=== PATIENT | female | born 1960 | race Caucasian/White ===

== ENCOUNTER 2017-12-14 15:45 | Emergency (ER) | payer OTHER ==
[2017-12-14] MEDS ORDERED: MECLIZINE HCL 12.5 MG TAB ONE ×3 (16:37→22:34)
[2017-12-14] MEDS ORDERED: ONDANSETRON 4 MG/2 ML VIAL ONE (16:37)
[2017-12-14] MEDS ORDERED: NA CHLORIDE 0.9% 1,000 ML ONE (16:38)
[2017-12-14 16:42] LABS: Absolute Lymphocytes (CBC) 1.3 K/uL (0.7-4.9); Absolute Monocytes 0.3 K/uL (0.1-1.3); Absolute Neutrophil 4.6 K/uL (1.8-8.0); Basophils % 0.4 % (0-1.3); Eosinophils % 2.1 % (0-4.4); Hematocrit 39.4 % (36.0-45.0); Lymphocytes % 20.4 % (15.3-44.8); MCH 28.6 pg (27.0-35.0); MCV 83.7 fL (80-100); Monocytes % 4.1 % (3.3-12.3)
[2017-12-14 16:50] LABS: Protime INR 1.03
[2017-12-14 16:59] LABS: Bicarbonate 27 mEq/L (21-31); Glucose Level 114 mg/dL (65-120); Potassium 3.7 mEq/L (3.6-5.0); Sodium Level 137 mEq/L (135-145)
--- NOTE | 2017-12-14 16:59 | RAD REPORT ---
EXAM DESCRIPTION: CT - Head C Spine Mpr Wo Con - 12/14/2017 4:48 pm CLINICAL HISTORY: Head and neck injury status post fall. Head and neck pain dizziness for 3 weeks COMPARISON: None. TECHNIQUE: Computed axial tomography of the head and cervical spine was obtained. Sagittal and coronal reconstruction was performed. All CT scans are performed using dose optimization technique as appropriate and may include automated exposure control or mA/KV adjustment according to patient size. FINDINGS: An intracranial bleed is not seen. The ventricles are normal in caliber. An extra-axial fl uid collection is not noted.Fluid within the visualized sinuses and mastoids is not seen A cervical fracture is not visualized. No dislocation is noted. Spondylosis C6-7 results in moderate narrowing of the right neural foramina IMPRESSION: No acute intracranial abnormality is seen. A cervical fracture is not visualized. If the patient continues to have symptoms to suggest intracra nial /spinal cord pathology then MRI would be recommended
--- NOTE | 2017-12-14 17:01 | RAD REPORT ---
EXAM DESCRIPTION: CT - Facial Bones W/ Mpr - 12/14/2017 4:48 pm CLINICAL HISTORY: Facial injury status post fall. Facial pain COMPARISON: none TECHNIQUE: Computed axial tomography of the face was obtained. Coronal and sagittal reconstruction w as performed. All CT scans are performed using dose optimization technique as appropriate and may include automated exposure control or mA/KV adjustment according to patient size. FINDINGS: A fracture is not seen. A TMJ dislocation is not noted. The globes are intact. Fluid within the sinuses is not seen. IMPRESSION: Negative for a facial fracture.
[2017-12-14 17:05] LABS: ALT/SGPT 21 IU/L (10-60); AST/SGOT 23 IU/L (10-42); Albumin 3.8 g/dL (3.2-5.5); Alkaline Phosphatase 54 IU/L (42-121); BUN Blood Urea Nitrogen 12 mg/dL (6-20); Bilirubin Direct < 0.1 mg/dL (0-0.2); Bilirubin Total 0.3 mg/dL (0.3-1.2); Creatine Phosphokinase 271 IU/L (22-269); Glomerular Filtration Rate 64 mL/min (=/>90); Magnesium 1.8 mg/dL (1.8-2.5); Protein, Total 6.7 g/dL (6.0-8.3)
[2017-12-14 17:06] LABS: CKMB Creatine Kinase MB 2.6 ng/ml (0.3-4.0)
--- NOTE | 2017-12-14 17:19 | RAD REPORT ---
EXAM DESCRIPTION: Riri Single View12/14/2017 4:44 pm CLINICAL HISTORY: Chest pain COMPARISON: none FINDINGS: A 3 centimeter lucency is present within the left lung base. The remainder of the lungs a ppear clear of acute infiltrate. The heart is normal size IMPRESSION: 3 centimeter lucency within the left lung base. It is uncertain whether this represents normal aerated lung surrounded by pulmonary vessels, a diaphragmatic hernia or a cavitary lesion. La teral chest x-ray is recommended for further evaluation
[2017-12-14 17:51] LABS: Urine Blood NEGATIVE (NEG); Urine Glucose NEGATIVE (NEG); Urine Protein NEGATIVE (NEG); Urine Specific Gravity 1.025 (1.005-1.030)
--- NOTE | 2017-12-14 19:25 | RAD REPORT ---
EXAM DESCRIPTION: RAD - Chest Pa And Lat (2 Views) - 12/14/2017 5:35 pm CLINICAL HISTORY: Abnormal chest film for followup COMPARISON: Portable chest December 14 TECHNIQUE: PA and lateral views of the chest were obtained. FINDINGS: The lungs are normal volume. There is slight diaphragmatic eventration present. The left d iaphragmatic region finding on earlier chest film was less conspicuous on the current examination. Th ere is no correlate on the lateral view. A mass or cavitation of the lung base is doubtful as a true finding. Heart size is normal and central vasculature is within normal limits. No pleural effusion or pneumothorax seen. Thoracic spine degenerative change present. No acute finding. No aortic abnorm ality. IMPRESSION: No acute cardiopulmonary process. The questionable mass at the left base is believed to be summation of overlapping lung parenchyma and diaphragmatic eventration.
--- NOTE | 2017-12-14 22:25 | RAD REPORT ---
EXAM DESCRIPTION: MRI - Brain Wo Cont - 12/14/2017 9:59 pm CLINICAL HISTORY: Weakness, dizziness, possible CVA COMPARISON: CT head same date TECHNIQUE: Sagittal T1-weighted images were obtained along with axial PD, heavily T2-weighted and T2 -FLAIR images. Axial DWI and ADC mapping sequences were also obtained along with coronal heavily T2-w eighted images. FINDINGS: No intracranial hemorrhage, mass or acute infarction. There is no edema or shift of midlin e structures. Multiple small areas of hyperintense T2/IR signal noted in the cerebral white matter. L ow-level increased signal is present in the anterior left side derrick. Although the patient is relative ly young, chronic ischemic change is the most likely etiology. Vasculitis, demyelinization and migrai ne headache etiologies would need matching clinical findings. Charles-matter/white matter junction is preserved. Signal voids are seen as a normal finding in the aly or intracranial vessels. No globe or orbital content abnormality. No sella or supra sella abnormality . No tonsillar ectopia. Mastoid air cells and paranasal sinuses are clear. IMPRESSION: No acute infarction changes. No hemorrhage, mass or acute intracranial finding. Scattered cerebral white matter and subcortical signal abnormalities are present along with anterior left pontine signal abnormality. Chronic ischemic changes most likely. Vasculitis, migraine headache and demyelinating etiologies are possible but would need corresponding clinical findings.
--- NOTE | 2017-12-14 22:32 | EDPHYS ---
Physician Documentation [facility] Name: Minal Tao Age: 57 yrs Sex: Female : 1960 Arrival Date: 12/14/2017 Time: 15:51 Bed 25 Private MD: ED Physician Moris Sanchez HPI: 12/14 16:40 This 57 yrs old Female presents to ER via Ambulatory with complaints of cp Dizziness, RINGING IN EARS, OFF BALANCE. 16:40 The patient presents with feeling off balance. Onset: The symptoms/episode cp began/occurred 3 week(s) ago. 16:40 Associated signs and symptoms: Pertinent negatives: focal weakness, headache, cp palpitations, shortness of breath, vomiting. Patient's baseline: Neuro: alert and fully oriented, Motor: no deficits, Ambulation: walks without assistance, Speech: normal. 16:40 The patient has been recently seen by a physician: an ENT specialist, a family cp practitioner, earlier today, with similar presenting complaints, told to stop chewing gum. 16:40 Patient reports losing her balance several days ago and falling and striking right cp infraorbital area of face. 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 - Social history:: Smoking status: Patient uses tobacco products, smokes one-half pack cigarettes per day. ROS: 16:43 Constitutional: Negative for body aches, chills, fever, poor PO intake. cp 16:43 Eyes: Negative for injury, pain, redness, and discharge. cp 16:43 ENT: Positive for ringing in ears, Negative for drainage from ear(s). 16:43 Cardiovascular: Negative for chest pain, edema, palpitations. 16:43 Respiratory: Negative for cough, shortness of breath, wheezing. 16:43 Abdomen/GI: Negative for abdominal pain, vomiting, diarrhea, constipation, black/tarry stool, rectal bleeding. 16:43 Back: Negative for pain at rest, pain with movement. 16:43 Neuro: Positive for dizziness, gait disturbance, Negative for altered mental status, syncope, near syncope, weakness. 16:43 All other systems are negative. Exam: 16:30 ECG was reviewed by the Attending Physician. cp 16:50 Constitutional: The patient appears in no acute distress, alert, awake, cp non-diaphoretic, non-toxic, well developed, well nourished. 16:50 Head/face: Noted is ecchymosis, that is mild, of the right infraorbital area, cp swelling, that is mild, tenderness. 16:50 Eyes: Pupils: equal, round, and reactive to light and accomodation, Extraocular movements: intact throughout, Conjunctiva: normal, no exudate, no injection, Sclera: no appreciated abnormality, Lids and lashes: appear normal, bilaterally, Visual sanches: are intact. 16:50 ENT: External ear(s): are unremarkable, Ear canal(s): are normal, clear, TM's: bulging, is not appreciated, bilaterally, dullness, bilaterally, erythema, is not appreciated, bilaterally, Nose: is normal, Mouth: Lips: moist, Oral mucosa: pink and intact, moist, Posterior pharynx: is normal, airway is patent, no erythema, no exudate, Voice: is normal. 16:50 Neck: C-spine: vertebral tenderness, is not appreciated, crepitus, is not appreciated, ROM/movement: is normal, is supple, without pain, no range of motions limitations, no nuchal rigidity. 16:50 Chest/axilla: Inspection: normal, Palpation: is normal, no crepitus, no tenderness. 16:50 Cardiovascular: Rate: tachycardic, Rhythm: regular, Pulses: Pulses are 2+ in right radial artery and left radial artery. Edema: is not appreciated, JVD: is not appreciated. 16:50 Respiratory: the patient does not display signs of respiratory distress, Respirations: normal, no use of accessory muscles, no retractions, no splinting, no tachypnea, labored breathing, is not present, Breath sounds: are clear throughout, no decreased breath sounds, no stridor, no wheezing. 16:50 Abdomen/GI: Inspection: abdomen appears normal, Bowel sounds: active, all quadrants, Palpation: abdomen is soft and non-tender, in all quadrants, rebound tenderness, is not appreciated, voluntary guarding, is not appreciated, involuntary guarding, is not appreciated. 16:50 Back: pain, is absent, ROM is normal. 16:50 Skin: cellulitis, is not appreciated, no rash present. 16:50 Neuro: Orientation: to person, place \T\ time. Mentation: is normal, Cerebellar function: Romberg testing is negative, Motor: moves all fours, strength is normal, Sensation: no obvious gross deficits. Vital Signs: 15:57 BP 134 / 90; Pulse 109; Resp 20; Temp 97.6; Pulse Ox 97% on R/A; Weight 64.86 kg; aj Height 5 ft. 5 in. (165.10 cm); 16:24 BP 118 / 93; Pulse 94; Resp 17; Pulse Ox 98% on R/A; rk2 17:44 BP 120 / 87; Pulse 80; Resp 17; Pulse Ox 98% on R/A; rk2 20:35 BP 131 / 82; Pulse 73; Resp 16; Pulse Ox 98% on R/A; rk2 22:46 BP 125 / 94; Pulse 83; Resp 17; Pulse Ox 98% on R/A; rk2 15:57 Body Mass Index 23.80 (64.86 kg, 165.10 cm) aj MDM: 15:59 Patient medically screened. cp 22:28 Data reviewed: vital signs, nurses notes, lab test result(s), EKG, radiologic studies, cp CT scan, MRI, plain films, and as a result, I will discharge patient. 12/14 16:13 Order name: Basic Metabolic Panel; Complete Time: 17:20 cp 04 17:20 Interpretation: Normal except: GFR 64. cp 12/14 16:13 Order name: BNP; Complete Time: 17:20 cp 12/14 16:13 Order name: CBC with Diff; Complete Time: 17:00 cp 12/14 17:00 Interpretation: Reviewed. cp 12/14 16:13 Order name: Ckmb; Complete Time: 17:20 cp 12/14 16:13 Order name: CPK; Complete Time: 17:20 cp 12/14 17:20 Interpretation: Abnormal: CPK 271. cp 12/14 16:13 Order name: LFT's; Complete Time: 17:20 cp 12/14 16:13 Order name: Magnesium; Complete Time: 17:20 cp 12/14 16:13 Order name: PT-INR; Complete Time: 17:00 cp 12/14 16:13 Order name: Ptt, Activated; Complete Time: 17:00 cp 04 16:13 Order name: Troponin (emerg Dept Use Only); Complete Time: 17:20 cp 04 16:13 Order name: XRAY Chest (1 view); Complete Time: 17:20 cp 12/14 16:13 Order name: CT Head C Spine; Complete Time: 17:00 cp 12 17:01 Interpretation: Reviewed report. 12 16:13 Order name: CT Facial Bones W/O Con; Complete Time: 17:20 cp 0412 17:48 Order name: Urine Dipstick--Ancillary (enter results); Complete Time: 19:07 mw2 12/14 16:13 Order name: EKG; Complete Time: 16:14 cp 12/14 16:13 Order name: Cardiac monitoring; Complete Time: 16:32 cp 12 16:13 Order name: EKG - Nurse/Tech; Complete Time: 16:32 cp 12/14 16:13 Order name: IV Saline Lock; Complete Time: 16:32 cp 12 16:13 Order name: Labs collected and sent; Complete Time: 16:32 cp 12 16:13 Order name: O2 Per Protocol; Complete Time: 16:32 cp 12 16:13 Order name: O2 Sat Monitoring; Complete Time: 16:32 cp 12 16:13 Order name: Urine Dipstick-Ancillary (obtain specimen); Complete Time: 17:45 cp 12 17:22 Order name: XRAY Chest Pa And Lat (2 Views); Complete Time: 19:51 cp 12 19:51 Interpretation: Report reviewed. 12 17:30 Order name: MRI - Brain Wo Cont; Complete Time: 22:26 cp EC:30 Rate is 85 beats/min. Rhythm is regular. AK interval is normal. QRS interval is normal. cp QT interval is normal. No ST changes noted. Reviewed by me. Administered Medications: 16:57 Drug: Meclizine 25 mg Route: PO; rk2 17:30 Follow up: Response: No adverse reaction rk2 16:57 Drug: Zofran 4 mg Route: IVP; Site: left antecubital; rk2 17:30 Follow up: Response: No adverse reaction rk2 16:57 Drug: NS 0.9% 1000 ml Route: IV; Rate: 1 bolus; Site: left antecubital; rk2 18:00 Follow up: Response: No adverse reaction; IV Status: Completed infusion rk2 22:41 Drug: Meclizine 25 mg Route: PO; rk2 22:44 Follow up: Response: given \T\ DC rk2 Disposition: 22:54 Chart complete. 12/15 15:39 Co-signature as Attending Physician, Moris Sanchez MD I agree with the assessment and wa plan of care. Disposition: 12/14/17 22:31 Discharged to Home. Impression: Dizziness. - Condition is Stable. - Discharge Instructions: Dizziness. - Prescriptions for Meclizine 25 mg Oral Tablet - take 1 tablet by ORAL route every 8 hours As needed; 30 tablet. Zofran 4 mg Oral Tablet - take 1 tablet by ORAL route every 12 hours As needed; 20 tablet. - Medication Reconciliation Form, Thank You Letter, Antibiotic Education, Prescription Opioid Use form. - Follow up: Liam Everett MD; When: 2 - 3 days; Reason: Recheck today's complaints. - Problem is new. - Symptoms have improved. Signatures: Dispatcher [employer] Kary Sanchez RN RN Naveed Dunham PA PA Moris Ferrell MD MD wa Kidder, Rhonda RN RN rk2
--- NOTE | 2017-12-14 22:32 | ER ---
Nurse's Notes [facility] Name: Minal Tao Age: 57 yrs Sex: Female : 1960 Arrival Date: 12/14/2017 Time: 15:51 Bed 25 Private MD: Diagnosis: Dizziness Presentation: 12/14 15:55 Presenting complaint: Patient states: Reports ringing in left ear, dizziness for 3 aj weeks. Seen by PCP and by ENT today. Instructed to stop chewing gum and to eat soft foods. Transition of care: patient was not received from another setting of care. Onset of symptoms was November 21, 2017. Care prior to arrival: None. 15:55 Method Of Arrival: Ambulatory aj 15:55 Acuity: ZAC 3 aj Triage Assessment: 15:57 General: Appears in no apparent distress. comfortable, Behavior is calm, cooperative, aj appropriate for age. Pain: Complains of pain in left ear. EENT: Reports ringing in left ear. Neuro: Level of Consciousness is awake, alert, obeys commands, Oriented to person, place, time, situation, Reports dizziness. Respiratory: Airway is patent Respiratory effort is even, unlabored, Respiratory pattern is regular, symmetrical. Derm: Skin is intact, is healthy with good turgor, Skin is pink, warm \T\ dry. normal. 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 - Social history:: Smoking status: Patient uses tobacco products, smokes one-half pack cigarettes per day. Screenin:20 Abuse screen: Denies threats or abuse. rk2 16:20 Nutritional screening: No deficits noted. Tuberculosis screening: No symptoms or risk rk2 factors identified. Fall Risk None identified. Assessment: 16:20 Neuro: Level of Consciousness is alert, obeys commands, Oriented to person, place, rk2 time, situation. Cardiovascular: Rhythm is sinus rhythm. 16:30 General: Appears in no apparent distress. well groomed, well developed, well nourished, rk2 Behavior is calm, cooperative. 16:30 Neuro: Reports dizziness. Respiratory: Airway is patent Respiratory effort is even, rk2 unlabored, Respiratory pattern is regular, symmetrical. Derm: Skin is pink, warm \T\ dry. 17:23 Reassessment: Pt. dropped on of her Antivert pills... wasted med and replaced with rk2 another tab. 19:00 Reassessment: Pt. resting in room in no obvious distress... no needs voiced. Pt. rk2 waiting for MRI. Verified that MRI is aware of order. 19:45 Reassessment: Pt. resting in room, appears to be in no obvious distress... waiting for rk2 MRI. No needs \T\ this time. Vital Signs: 15:57 BP 134 / 90; Pulse 109; Resp 20; Temp 97.6; Pulse Ox 97% on R/A; Weight 64.86 kg; aj Height 5 ft. 5 in. (165.10 cm); 16:24 BP 118 / 93; Pulse 94; Resp 17; Pulse Ox 98% on R/A; rk2 17:44 BP 120 / 87; Pulse 80; Resp 17; Pulse Ox 98% on R/A; rk2 20:35 BP 131 / 82; Pulse 73; Resp 16; Pulse Ox 98% on R/A; rk2 22:46 BP 125 / 94; Pulse 83; Resp 17; Pulse Ox 98% on R/A; rk2 15:57 Body Mass Index 23.80 (64.86 kg, 165.10 cm) ED Course: 15:51 Patient arrived in ED. sb2 15:56 Triage completed. aj 15:57 Arm band placed on right wrist. Patient placed in an exam room. aj 15:59 Naveed Gutierrez PA is PHCP. cp 15:59 Moris Sanchez MD is Attending Physician. cp 16:03 Mihaela Dawn, MAC is Primary Nurse. rk2 16:20 Patient has correct armband on for positive identification. Bed in low position. Call rk2 light in reach. Side rails up X 1. gambling monitor on. Pulse ox on. 16:32 CT Facial Bones W/O Con Sent. rk2 16:32 CT Head C Spine Sent. rk2 16:32 Inserted saline lock: 20 gauge in left antecubital area, using aseptic technique. Blood ag collected. 16:34 BNP Sent. ag 16:35 CBC with Diff Sent. ag 16:35 CPK Sent. ag 16:35 Ckmb Sent. ag 16:35 LFT's Sent. ag 16:35 Magnesium Sent. ag 16:35 PT-INR Sent. ag 16:35 Ptt, Activated Sent. ag 16:35 Troponin (emerg Dept Use Only) Sent. ag 16:42 X-ray completed. Portable x-ray completed in exam room. Patient tolerated procedure ml well. 16:42 XRAY Chest (1 view) In Process Unspecified. EDMS 16:48 CT Head C Spine In Process Unspecified. EDMS 16:48 CT Facial Bones W/O Con In Process Unspecified. EDMS 16:48 CT completed. Patient tolerated procedure well. Patient moved back from CT. vm2 17:30 Patient moved to radiology via wheelchair. ml 17:32 X-ray completed. Patient tolerated procedure well. ml 17:32 Patient moved back from radiology. ml 17:33 XRAY Chest Pa And Lat (2 Views) In Process Unspecified. EDMS 21:40 Patient moved to MRI via wheelchair. jg1 21:50 MRI - Brain Wo Cont In Process Unspecified. EDMS 21:57 Patient moved back from MRI. jg1 22:31 Liam Everett MD is Referral Physician. cp 22:47 No provider procedures requiring assistance completed. IV discontinued. rk2 Administered Medications: 16:57 Drug: Meclizine 25 mg Route: PO; rk2 17:30 Follow up: Response: No adverse reaction rk2 16:57 Drug: Zofran 4 mg Route: IVP; Site: left antecubital; rk2 17:30 Follow up: Response: No adverse reaction rk2 16:57 Drug: NS 0.9% 1000 ml Route: IV; Rate: 1 bolus; Site: left antecubital; rk2 18:00 Follow up: Response: No adverse reaction; IV Status: Completed infusion rk2 22:41 Drug: Meclizine 25 mg Route: PO; rk2 22:44 Follow up: Response: given \T\ DC rk2 Outcome: 22:31 Discharge ordered by . cp 22:47 Discharged to home ambulatory. rk2 22:47 Condition: good 22:47 Discharge instructions given to patient, Prescriptions given X 2. 22:47 Patient left the ED. rk2 Signatures: Dispatcher [employer] Kary Sanchez RN RN aj Garcia, Jessica jg1 Lopez, Melissa ml Villagomez, Naveed Peraza PA PA cp McGuire, Victoria 2 Mihaela Dawn RN RN rk2 Bhavna Ayoub 2
--- NOTE | 2017-12-17 22:50 | EKG ---
Test Date: 2017-12-14 Test Time: 16:23:51 Assembler Mechanical Ordnance: HB MEASUREMENT RESULTS: Intervals: Rate: 85 RI: 138 QRSD: 80 QT: 358 QTc: 426 Dulzura: P: 60 RI: 138 QRS: 71 T: 70 INTERPRETIVE STATEMENTS: Sinus rhythm with occasional premature ventricular complexes Otherwise normal ECG No previous ECG available for comparison Electronically Signed On 12-17-17 22:49:16 CDT by Michael Lizama
== END 2017-12-14 22:47 | disposition home or self-care (01) ==
LOC: ER 15:45
DX: R42 Dizziness and giddiness (principal); F17.210 Nicotine dependence, cigarettes, uncomplicated; Z88.2 Allergy status to sulfonamides
CPT/HCPCS: 36415; 70450; 70486; 70551; 71045; 71046; 72125; 76377; 80048; 80076; 81003; 82550; 82553; 83735; 83880; 84484; 85025; 85610; 85730; 93005; 96361; 96374; 99285; J2405; J7030